=== PATIENT | female | born 1995 | race Caucasian/White ===

== ENCOUNTER 2018-08-27 14:25 | Emergency (ER) | payer OTHER, SELFPAY ==
[2018-08-27 14:25] VITALS: BP 127/79; PULSE 103; RESP 16; TEMP 36.5; O2SAT 97; BMI 30.9
--- NOTE | 2018-08-27 14:44 | ED.DCSUM_ITS ---
History of Present Illness Chief Complaint: Abscess Informant: Patient Onset: Weeks Context: Sudden Onset Timing: Intermittent Quality: Pain gluteal crease Location: Gluteal crease Current Severity: Mild Maximum Severity: Severe Worsened by: Sitting position Relieved by: Nothing Associated Symptoms: No associated symptoms Narrative: Patient is a 23-year-old female who presents with tender swollen area. She was placed on antibiotics. The abscess decreased in size. She had recurrence. She attempted to sherie the abscess with a knife. She denies a traumatic fever, murmur, SBE, IV drug use or being immune suppressed. She is on no immuno suppressive meds. Prior similar symptoms: Yes Recent Illness/Hospitalization: Yes - Past Medical History (1) History of abscess of skin and subcutaneous tissue Status: Acute Past Medical History - Allergies and Home Meds Allergies/Adverse Reactions: Allergies No Known Allergies Allergy (Verified 08/27/18 14:27) Primary Care Physician: Mazin Khan MD [STAFF PHYSICIAN] - Past Medical History: None Surgical History: no surgical history Lives: With Family Smoking Status: Never smoker Alcohol: None Review of Systems General: Denies: Chills, Fever, Malaise, Subjective, Sweats, Weight loss, - Cardiovascular: Denies: Chest pain, Palpitations, Heart racing, -, - Respiratory: Denies: Dyspnea, Cough, Dyspnea on exertion Gastrointestinal: Reports: Nausea, Vomiting Musculoskeletal: Denies: Myalgias, Arthralgias, Neck pain, Back pain, Swelling, Extremity Pain Skin: Reports: Rash, Abscess, Wounds. Denies: Abrasions Neurological: Denies: Headache, Weakness Hematologic: Denies: Easy bruising, Easy bleeding Allergy: Denies: Uticaria, Swelling of the mouth Physical Exam Vital Signs/Narrative: Vital Signs Temp Pulse Resp BP Pulse Ox 08/27/18 14:25 97.7 F L 103 H 16 127/79 H 97 Inital Vital Signs reviewed: Yes General: Well nourished, Well developed, No Acute Distress, - - Patient is lying on her left side because it hurts to lie on her back. Head: Normocephalic, Atraumatic Neck: Supple, Nontender, No lymphadenopathy, No JVD Cardiovascular: Regular rate, Regular rhythm, No murmurs. Negative for: Normal S1, Normal S2 Respiratory: No distress, CTA bilaterally, Chest nontender Abdomen: Soft, Nontender, Nondistended, Normal bowel sounds Back: Nontender, Normal Inspection Extremities: Nontender, No edema Skin: No rash - Abscess gluteal crease predominately on right side. There is no sinus tract to suggest pilonidal cyst. Neurological: Alert, Oriented x3, Cranial nerves II-XII grossly intact, Normal Strength, Normal Sensation Psychological: Normal affect, Normal Mood Diagnostic/Tx/Re-eval - Medical Decision Making Patient has a subcutaneous abscess with mild cellulitis. She is presently on Bactrim. There is evidence that patient attempted to sherie the abscess herself. Since patient drank 30 minutes prior to presentation plan is local anesthetic and incision with drainage. Will change antibiotic to Augmentin. Patient tolerated procedure well. She became nauseous. Zofran was ordered. Augmentin was ordered as well. Procedures Procedure(s): I&D procedure note. Patient was prepped draped sterile manner. The area was anesthetized 1% lidocaine by local infiltration. Incision was made with brown purulent drainage. Blunt dissection was undertaken. There was approximately 30 cc of material that drained. The cavity was irrigated. 1 inch iodoform gauze was placed to facilitate further drainage. Dressing was applied. ED Disposition - Plan for ED Patient: Disposition: Home or Assisted Living Diagnosis: Cellulitis and abscess of buttock Instructions: ED Abscess IandD, ED Infec Skin Cellulitis Prescriptions: Ondansetron [Zofran Odt] 4 mg PO Q8H PRN PRN #10 tab PRN Reason: Nausea Amox/Clavulanate Tablet [Augmentin Tablet] 875 mg PO Q12H #14 tab Referrals: Mazin Khan MD [STAFF PHYSICIAN] - 2 Days for wound check Additional Instructions: If you are unable to be seen by physician in 2 days please return to the [facility] from to have your wick removed and wound reassessed. Continue to take Bactrim until gone.
[2018-08-27] MEDS: Ondansetron ODT 4 MG Tablet PO (15:26)
[2018-08-27] MEDS: Amox/Clavulanate 875 MG Tablet PO (15:26)
--- NOTE | 2018-08-27 15:31 | ED.RN ---
DISCHARGE INSTRUCTIONS GIVE TO AND REVIEWED WITH PATIENT, PATIENT DENIES QUESTIONS OR CONCERNS AND VOICES UNDERSTANDING OF DISCHARGE INSTRUCTIONS. PT AMBULATES OUT OF ROOM WITHOUT DIFFICULTY.
== END 2018-08-27 15:32 | disposition home or self-care (01) ==
PROVIDERS: Emergency Provider Emergency Medicine
DX: L02.31 Cutaneous abscess of buttock (principal); L03.317 Cellulitis of buttock
CPT/HCPCS: 10061; 10060; 99283